=== PATIENT | male | born 1960 | race Caucasian/White ===

== ENCOUNTER 2016-06-19 07:00 | Day surgery (SDC) | payer BC ==
[2016-06-19] MEDS ORDERED: 0.9 % SODIUM CHLORIDE 10 ML VIAL IVP ONE (13:52)
[2016-06-19] MEDS ORDERED: PROPOFOL 10 MG/ML VIAL IV ONE (13:52)
[2016-06-19] MEDS ORDERED: LIDOCAINE 2% MDV (20MG/ML) 20ML VIAL IV ONE (13:52)
--- NOTE | 2016-06-22 09:00 | Operative Note ---
DATE OF SURGERY: 06/19/2016 SURGEON: Sidney Polo MD OPERATION: COLONOSCOPY. INDICATIONS: This is a 55-year-old male with average risk for colorectal cancer who presented for screening colonoscopy. POSTOPERATIVE DIAGNOSES: 1. Left-sided colon diverticulosis. 2. Otherwise normal colon. ANESTHESIA: Per the department of anesthesia, the pulse oximetry was monitored throughout the duration of the procedure to maintain O2 saturation of 90% or greater. Supplemental oxygen was administered via nasal cannula. Cardiac and vital signs were monitored throughout the duration of the procedure, and they were stable. Description of the procedure of colonoscopy and risks and benefits of the procedure including the risk of bleeding and perforation, among others, were explained to the patient who voiced understanding and consented to have the procedure done. Physical exam was performed, and the patient was found stable for sedation. PROCEDURE: The patient was then placed in the left lateral position, and sedation was initiated. Digital rectal exam was performed and showed some external hemorrhoids with no palpable rectal masses. The Olympus PCF-180AL colonoscope was then inserted into the rectum under direct visualization and advanced to the cecum without difficulty. The ileocecal valve and appendiceal orifice were identified and photographed. The colonic mucosa was carefully examined upon introduction of the colonoscope. There were scattered diverticula noted in the sigmoid and descending colon. There were no other lesions noted. The colonoscope was then withdrawn while carefully examining the colonic mucosal surfaces. No other lesions were noted. The bowel preparation was good. In the rectum, retroflexion was performed and grade 1 internal hemorrhoids were noted. The colonoscope was then withdrawn, and the procedures were terminated. The patient tolerated the procedure well without any immediate complications. He remained with stable vital signs and was transferred to the recovery room. RECOMMENDATIONS: 1. The patient should be on a high-fiber diet. 2. He is to have a repeat colonoscopy for screening in 10 years. Thank you for allowing me to participate in the care of your patient. Sidnye Polo MD CC: Nora FINK
== END 2016-06-19 08:50 | disposition home or self-care (01) ==
LOC: HOP 07:00
PROVIDERS: ATTEND Internal Medicine Gastroenterology
DX: Z12.11 Encounter for screening for malignant neoplasm of colon (principal); K57.30 Diverticulosis of large intestine without perforation or abscess without bleeding
CPT/HCPCS: 00810; G0121

== ENCOUNTER 2017-10-07 06:01 | Day surgery (SDC) | payer MEDICAID ==
[~2017-10-07 06:01] MED LIST: ACETAMINOPHEN 1,000 MG/100 ML BTL IV ONE
[2017-10-07] MEDS ORDERED: ROCURONIUM BROMIDE 50MG/5ML VIAL IV ONE (06:02)
[2017-10-07] MEDS ORDERED: BUPIVACAINE 0.5% (5MG/ML) PF 30ML VIAL IVP ONE (06:02)
[2017-10-07] MEDS ORDERED: SUCCINYLCHOLINE 20 MG/ML 10ML IVP ONE (06:02)
[2017-10-07] MEDS ORDERED: ONDANSETRON HCL IV 4 MG/2 ML VIAL IVP ONE (06:02)
[2017-10-07] MEDS ORDERED: MIDAZOLAM HCL 2MG/2ML VIAL IV ONE (06:02)
[2017-10-07] MEDS ORDERED: FENTANYL PF 100MCG/2ML VIAL IV ONE (06:02)
[2017-10-07] MEDS ORDERED: HYDROMORPHONE HCL 2 MG/ML VIAL IV ONE (06:02)
[2017-10-07] MEDS ORDERED: HYDROCODONE/APAP 7.5/325MG TABLET PO ONE (06:02)
[2017-10-07] MEDS ORDERED: BUPIVACAINE LIPOSOME/PF 133MG/10ML VIAL IV ONE (06:02)
[2017-10-07] MEDS ORDERED: LIDOCAINE 1% MDV (10MG/ML) 20ML VIAL SQ ONE (06:02)
[2017-10-07] MEDS ORDERED: DEXAMETHASONE 4 MG/ML 1ML VIAL IVP ONE (06:02)
[2017-10-07] MEDS ORDERED: NEOSTIGMINE 1 MG/1 ML,10ML VIAL IV ONE (06:02)
[2017-10-07] MEDS ORDERED: SEVOFLURANE 250 ML INH ONE (06:02)
[2017-10-07] MEDS ORDERED: EPINEPHRINE 1 MG/ML AMPUL SQ ONE (06:02)
[2017-10-07] MEDS ORDERED: GLYCOPYRROLATE 0.2 MG/ML ML IV ONE (06:02)
[2017-10-07] MEDS ORDERED: PROPOFOL 10 MG/ML VIAL IV ONE (06:02)
[2017-10-07] MEDS ORDERED: KETOROLAC 30 MG/ML VIAL IVP ONE (06:02)
--- NOTE | 2017-10-08 14:00 | Operative Note ---
DATE OF SURGERY: 10/07/2017 Surgeon: Atif Hylton DO PREOPERATIVE DIAGNOSES: 1. Tear of the right rotator cuff. 2. Impingement syndrome, right shoulder. POSTOPERATIVE DIAGNOSES: 1. Torn right rotator cuff. 2. Impingement syndrome, right shoulder. 3. Tear of the anterior inferior glenoid labrum. 4. Tear of the biceps tendon, right shoulder. OPERATION: 1. Arthroscopic repair of the right rotator cuff. 2. Arthroscopic subacromial decompression and acromioplasty of the right shoulder. 3. Arthroscopic tenotomy of the biceps tendon, right shoulder. 4. Arthroscopic debridement of the anterior and inferior glenoid labrum, right shoulder. DESCRIPTION OF PROCEDURE: This 57-year-old male was taken to the operating room and placed in the supine position on the operating room table. General anesthetic was administered. The patient was placed in the beach chair position with all bony prominences well padded and the head well secured. The right shoulder prepped with Hibiclens and draped in the usual sterile fashion. A posterior portal was established in the glenohumeral joint and initial evaluation of the joint demonstrated marked tearing of the biceps tendon. There is no normal appearance of the biceps whatsoever and extremely frayed and thin. We attempted to pull the tendon up to see some normal tendon and really could not identify any normal appearance of the tendon. There was some tearing of the subscapular and there was medial subluxation of the biceps tendon. We placed an anterior portal and debrided the biceps tendon and subsequently tenotomy was performed. The undersurface of the rotator cuff was well exposed and severe tearing with some retraction of the supraspinatus and infraspinatus was identified. This was debrided on its undersurface through a lateral portal. Subsequently the scope was placed in the subacromial space and thorough subacromial decompression and acromioplasty was performed. We were able to mobilize the tendon partially. The anterior aspect of the supraspinatus was retracted and more fixed. Therefore, we did a [id number] repair in that portion but the remainder was much more mobile. The supraspinatus and infraspinatus and subsequently we were able to pull this down to the bony tuberosity. We did remove approximately 6-7 mm of articular cartilage to give us a better bony attachment. Once the articular cartilage had been removed, the bone was debrided to have a good bony base for insertion of the rotator cuff. Subsequently, the cuff was repaired in a modified speed bridge technique. We placed 2 SwiveLock anchors with a FiberTape and TigerTape, respectively inserted. One was placed adjacent to the articular cartilage on the anterior margin of the tear and the second at the posterior margin of the tear. The sutures were then shuttled through the rotator cuff. An additional horizontal mattress type suture with a #2 FiberWire was placed in between those sutures. Subsequently a 3rd SwiveLock anchor was used to take a single limb of the anterior FiberTape and one limb of the TigerTape and one limb of the horizontal mattress suture, placed it through the anchor and this was then placed inferior to the anterior anchor. Traction placed on the sutures and the anchor impaled. This brought the cuff down to excellent position. Subsequently, the 3 remaining tails of suture were placed through a 4th SwiveLock anchor which was placed inferior to the posterior anchor. Again, traction was placed on the sutures to bring the cuff down to the tuberosity which had been previously prepared. Again, once it was satisfactory position, the anchor was impaled and was found to be satisfactory and the sutures were cut. The wound was irrigated with lactated Ringer's solution. The instruments were removed. The portals closed with 4-0 nylon suture. Sterile dressings were applied. Ultrasling also applied. GROSS PATHOLOGY: This patient had a severe retracted tear of the rotator cuff which was repaired by anterior [id number] sutures and then we were able to repair the rest using a modification of the speed bridge technique as described above. In addition, tenotomy of the biceps tendon was performed due to the severity of the tear. The patient also demonstrated a tear of the subscapularis which was much more superficial. It was mostly intact but torn enough to allow dislocation of the biceps tendon. In addition, some tearing of the anterior inferior fibers of the anterior labrum was present. These were debrided with the rotating shaver prior to wound closure. CC: Nimisha Salinas, EDY FINK
== END 2017-10-07 11:10 | disposition home or self-care (01) ==
LOC: SUR 06:01
PROVIDERS: ATTEND Orthopaedic Surgery
DX: M75.101 Unspecified rotator cuff tear or rupture of right shoulder, not specified as traumatic (principal); M75.41 Impingement syndrome of right shoulder; S43.432A Superior glenoid labrum lesion of left shoulder, initial encounter; S46.211A Strain of muscle, fascia and tendon of other parts of biceps, right arm, initial encounter; F17.210 Nicotine dependence, cigarettes, uncomplicated
CPT/HCPCS: 29827; 29826; 29823; 01630; J1885; J2405; J3010; J1170; C9290; J0171; J0330; J2710